=== PATIENT | male | born 1970 | race African-American/Black ===

== ENCOUNTER 2019-05-16 09:06 | Outpatient (CLI) | payer MEDICARE ==
--- NOTE | 2019-05-16 10:34 | CT ---
CT ANGIOGRAM OF THE ABDOMINAL AORTA WITH BILATERAL LOWER EXTREMITY RUNOFF: HISTORY: Atherosclerosis of the [place] arteries. COMPARISON: None TECHNIQUE: CT angiogram of the abdominal aorta and bilateral lower extremity runoff is performed in the axial pl ane. Three-dimensional reformatted images are submitted for interpretation FINDINGS: Interval evaluated groundglass nodules/opacities in the right lower lobe measuring approximately 0.6 to 0.7 cm. Additional smaller groundglass nodules are noted in the right lower lobe. Patchy groundglass opacities in the left lower lobe. Further interrogation with a dedicated postcontrast [facility] CT is recommended. Normal heart size. Portal vein is patent. Unremarkable gallbladder. Hypoattenuation of liver due to hepatic steatosis. Spleen, pancreas and adrenal glands have appropriate attenuation and enhancement. Main pancreatic ramona t measures 0.2 cm, which is at the upper limits. Symmetric enhancement kidneys. Bilaterally no obstructive uropathy. No gastrohepatic, retrocrural or periportal lymphadenopathy. No gastric mass, lymphadenopathy, free air or free fluid. Limited evaluation of the alimentary canal by the lack of oral contrast. No evidence of bowel obstruc tion. Ileocecal junction is normal. Normal caliber appendix. Scattered fecal material in a nondistended, nondilated colon. CT Pelvis: Mildly prominent prostate gland. No pelvic mass, lymphadenopathy, free air or free fluid. Osseous structures: There are no lytic or blastic lesions. CT ANGIOGRAM: The descending thoracic aorta and suprarenal abdominal aorta have appropriate enhancement and luminal diameter. Inferior to the renal origins, there is complete occlusion of the aorta as well as the aortic bifurcation as well as bilateral common iliac arteries and bilateral external iliac arteries. The celiac artery origin, superior mesenteric artery origin, inferior mesenteric artery origin and bilateral renal arteries have appropriate enhancement and luminal diameter. 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 Bilateral internal iliac arteries are also occluded. Right lower extremity: Via collateral flow, there is opacification of the right common femoral artery . The profunda femoral artery, superficial femoral artery have appropriate enhancement and luminal diameter. Short segment mild stenosis of the superficial femoral artery. Popliteal artery is patent. Arterial trifurcation is patent. There appears to be scattered atherosclerosis in the peroneal artery. There is evidence of atherosclerosis involving the anterior tibial artery and posterior tibia l artery. There is a single vessel supply to the right foot via the posterior tibial artery Left lower extremity: There is opacification of the superficial femoral artery via collateral flow. P rofunda femoral artery is patent. There is multifocal short segment mild stenosis involving the superficial femoral artery. There is short segment multifocal mild stenosis of the popliteal artery. Arterial trifurcation is unremarkable. There appears to be two-vessel supply down to the ankle from the anterior tibial artery and posterior tibial artery. IMPRESSION: 1. 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 There is opacification of bilateral lower extremity common femoral arteries via collateral flow. 2. Two-vessel supply down to the left ankle. Single vessel supply down to the right foot. CODE T Transcribed Date/Time: 05/16/2019 10:43 AM
[2019-05-16] MEDS ORDERED: Iopamidol 370 76% 100 ML VIAL ONE (15:20)
== END 2019-05-16 09:07 | disposition home or self-care (01) ==
LOC: CT 09:06
PROVIDERS: ATTEND Thoracic Surgery (Cardiothoracic Vascular Surgery)
DX: I70.213 Atherosclerosis of native arteries of extremities with intermittent claudication, bilateral legs (principal); I74.5 Embolism and thrombosis of iliac artery; I74.09 Other arterial embolism and thrombosis of abdominal aorta
CPT/HCPCS: 75635; Q9967